=== PATIENT | female | born 1955 | race Caucasian/White ===

== ENCOUNTER 2023-08-31 08:03 | Emergency (ER) | payer MEDICARE, SELFPAY ==
--- NOTE | 2023-08-31 08:06 | ED.URI ---
HPI - URI/Sore Throat General Chief Complaint: Upper Respiratory Infection Stated Complaint: cough Time Seen by Provider: 08/31/23 08:21 Source: patient, RN notes reviewed and old records reviewed Mode of arrival: ambulatory Limitations: no limitations History of Present Illness HPI Narrative: 67-year-old female presents to the [facility] with complaints a cough for the last 3-4 days. Patient states that she has tried OTC medications and cough drops without relief. States that she has been running fevers of 100.5, has taken Tylenol with relief. Patient denies any other upper respiratory symptoms at this time Denies chest pain or shortness of breath Treatments prior to arrival: acetaminophen and other Related Data Home Medications Medication Instructions Recorded Confirmed bupropion HCl 150 mg 24 hr tablet, 150 mg PO DAILY 08/31/23 08/31/23 extended release hydrochlorothiazide 12.5 mg capsule 12.5 mg PO DAILY 08/31/23 08/31/23 latanoprost 0.005 % eye drops See Rx Instructions .Route .COMPLEX 08/31/23 08/31/23 levothyroxine 25 mcg tablet 25 mcg PO DAILY 08/31/23 08/31/23 rosuvastatin 40 mg tablet 40 mg PO DAILY 08/31/23 08/31/23 Allergies Allergy/AdvReac Type Severity Reaction Status Date / Time iodine Allergy THROAT Verified 08/31/23 08:21 SWELLING, RASH morphine Allergy LOCALIZED Verified 08/31/23 08:21 SKIN REACTION AT IV SITE Review of Systems Review of Systems: All systems reviewed & are unremarkable except as noted in HPI and below Constitutional: Constitutional: Reports no additional constitutional complaints Eyes: Eyes: Reports no additional eye complaints ENT: Reports as per HPI Cardiovascular: Cardiovascular: Reports no additional cardiovascular complaints, Denies chest pain and Denies dyspnea Respiratory: Respiratory: Reports as per HPI, Denies chest congestion, Reports cough and Denies dyspnea Gastrointestinal: Gastrointestinal: Reports no additional gastrointestinal complaints, Denies abdominal pain, Denies nausea and Denies vomiting Musculoskeletal: Musculoskeletal: Reports no additional musculoskeletal complaints Integumentary/Breasts: Skin/Breast: Reports system reviewed and no additional complaints, except as docu Neurologic: Reports system reviewed and no additional complaints, except as documented Psychiatric: Psychiatric: Reports no additional psychiatric complaints Allergic/Immunologic: Allergic/Immunologic: Reports no additional allergic/immunologic complaints [facility] Past Medical History Medical History (Updated 08/31/23 @ 08:33 by Elke Avelar APRN) Glaucoma Beata's disease High cholesterol Thyroid disease Surgical History Surgical History (Updated 08/31/23 @ 08:30 by Elke Avelar APRN) History of right hip replacement Social History Social History Smoking status: Current every day smoker Tobacco type: cigarettes Comments At the time of my signature, I reviewed and agree with the nursing past medical, surgical, social, and family history. There is no relevant family history pertinent to the patient complaint. Exam Const: General: cooperative, healthy appearing, comfortable, no acute distress, well developed, alert and well nourished Nutritional Appearance: well nourished Orientation/consciousness: patient oriented x3 Limitations: no limitations HENMT: Head: normal to inspection Ears: hearing grossly normal bilaterally, external ears normal, TM's normal bilaterally, EAC's normal, mastoids normal and no periauricular adenopathy Face/Nose/Sinus: Normal external nose present, Normal nares present, Normal nasal mucous membranes and turbinates present, No nasal discharge present, normal facial exam and face symmetric Face and sinus: normal facial exam, sinuses nontender and face symmetric Mouth: Yes Normal oral and palatal mucosa present, Yes lip normal and Yes moist mu
[2023-08-31 08:21] VITALS: BP 99/84; PULSE 84; RESP 16; TEMP 37.3; O2SAT 100
== END 2023-08-31 08:40 | disposition home or self-care (01) ==
PROVIDERS: Emergency Provider Nurse Practitioner; PCP Nurse Practitioner
DX: J40 Bronchitis, not specified as acute or chronic (principal); F17.210 Nicotine dependence, cigarettes, uncomplicated; E06.3 Autoimmune thyroiditis; H40.9 Unspecified glaucoma; E78.00 Pure hypercholesterolemia, unspecified; Z96.641 Presence of right artificial hip joint; E03.9 Hypothyroidism, unspecified
CPT/HCPCS: 99213; G0463

== ENCOUNTER 2025-01-30 08:05 | Emergency (ER) | payer MEDICARE, SELFPAY ==
--- NOTE | 2025-01-30 08:08 | ED.FEMALEGU ---
HPI - Female Genitourinary General Chief complaint: Urogenital-Female Stated complaint: urinary irritation Time Seen by Provider: 01/30/25 08:08 Source: patient Mode of arrival: ambulatory Limitations: no limitations History of Present Illness HPI Narrative: Juliane is a 69-year-old female patient presenting to the clinic today with complaints of possible UTI x3-4 days. Is having burning, frequency, bladder pressure, hematuria, and urgency. Also reporting some right-sided flank pain that comes and goes. Contacted her urologist and they recommend she go to the hospital to have a CT scan done to rule out kidney stones as she has a history of kidney stones. Has a CT scan scheduled for February 07, 2025. She thinks this is more of a urinary tract infection. Has taken azo this morning for the discomfort and that has helped her symptoms. No fevers, chills, nausea, vomiting, or abdominal pain. Related Data Home Medications ?Medication ?Instructions ?Recorded ?Confirmed ?Last Taken ?Type bupropion HCl 150 mg 24 hr tablet, 150 mg PO DAILY 08/31/23 08/31/23 Unknown History extended release hydrochlorothiazide 12.5 mg capsule 12.5 mg PO DAILY 08/31/23 08/31/23 Unknown History latanoprost 0.005 % eye drops See Rx Instructions .Route .COMPLEX 08/31/23 08/31/23 Unknown History levothyroxine 25 mcg tablet 25 mcg PO DAILY 08/31/23 08/31/23 Unknown History rosuvastatin 40 mg tablet 40 mg PO DAILY 08/31/23 08/31/23 Unknown History Allergies Allergy/AdvReac Type Severity Reaction Status Date / Time iodine Allergy THROAT Verified 08/31/23 08:21 SWELLING, RASH morphine Allergy LOCALIZED Verified 08/31/23 08:21 SKIN REACTION AT IV SITE Review of Systems Review of Systems: Pertinent positives per HPI. Patient denies any fever, chills, rash, headache, visual changes, dizziness, cough, runny nose, sore throat, shortness of breath, chest pain, palpitations, nausea, vomiting, diarrhea, constipation, abdominal pain PMFSH Past Medical History Medical History Glaucoma Beata's disease Thyroid disease High cholesterol Surgical History Surgical History History of right hip replacement Social History Social History Smoking status: Current every day smoker Tobacco type: cigarettes Comments At the time of my signature, I reviewed and agree with the nursing past medical, surgical, social, and family history. There is no relevant family history pertinent to the patient complaint. Exam Narrative: General: Well-developed, well nourished, in no apparent distress. Head: Normocephalic, atraumatic. Cardio: Regular rate and rhythm, s1 and s2 normal, no murmur appreciated. Resp: Clear to auscultation bilaterally, no rhonchi, rales, wheezing or rubs. Abdomen: Soft, pliable, bowel sounds present in all quadrants, suprapubic-tender to palpation, no organomegly, right CVAT tenderness. Course Course Emergency Course: Portions of this record may have been created with voice recognition software. Level of Care: Express Care Visit Vital Signs Vital signs: Vital signs reviewed MDM - Female Genitourinary MDM Narrative Medical decision making narrative: At the time of visit patient is resting comfortably on the exam table. Patient appears to be nontoxic. Labs: Urine culture was sent to the lab. Unable to do urinalysis dip due to patient taking azo Plan: I suspect patient has likely UTI but cannot rule out ureterolithiasis/pyelonephritis at this time. Will place patient on 7 day course of Bactrim and send urine for culture. If symptoms worsen she is to go the emergency room for further evaluation or contact her urologist. Supportive measures were discussed with the patient and they voiced understanding discharge instructions and agrees to treatment plan. Return precautions reviewed Differential Diagnosis Differential diagnosis: Likely urinary tract infection, cystitis and other (Pyelonephritis, ureterolithiasis, nephrolithiasis) Discharge Plan Discharge Clinical Impression: Urinary tract infection Qualifiers: Urinary tract infection type: acute cystitis Hematuria presence: with hematuria Qualified Code(s): N30.01 - Acute cystitis with hematuria Patient Disposition: Home Condition: Stable Instructions: Antibiotic Form, Urinary Tract Infection in Women (ED) Additional Instructions: Cannot rule out kidney stone in the ureter or a kidney infection at this time. Urinalysis sent to lab for culture Take Bactrim as prescribed Increase fluids and stay well hydrated Wipe front to back. May use wet wipes. Avoid tub baths If sexually active- pee before and after intercourse. Wear cotton panties Avoid tight clothing up against the genitals Follow up with your PCP in 1 week if symptoms persist. Follow-up with urologist as discussed Patient Language: Martiniquais Prescriptions: New sulfamethoxazole-trimethoprim [Bactrim DS] 800-160 mg tablet 1 tablet PO Q12H 7 Days Qty: 14 0RF No Action latanoprost 0.005 % drops See Rx Instructions .ROUTE .COMPLEX Rx Instructions: Rx levothyroxine 25 mcg tablet 25 mcg PO DAILY hydrochlorothiazide 12.5 mg capsule 12.5 mg PO DAILY rosuvastatin 40 mg tablet 40 mg PO DAILY bupropion HCl 150 mg tablet extended release 24 hr 150 mg PO DAILY (DME) Aerochamber MV Spacer See Rx Instructions .Route Qty: 1 0RF Rx Instructions: As directed albuterol sulfate 90 mcg/actuation HFA aerosol inhaler 2 puff inhalation QID PRN (Reason: shortness of breath or wheezing) Qty: 6.7 0RF prednisone 20 mg tablet 20 mg PO DAILY Qty: 5 0RF Follow-up/Referrals: Sierra,TIN Abdalla [Primary Care Provider] - Time of Disposition: 08:27 Quality NIHSS Nursing Documentation ED NIHSS nursing documentation: reviewed/agree
[2025-01-30 08:15] VITALS: BP 144/61; PULSE 56; RESP 16; TEMP 36.4; O2SAT 99
== END 2025-01-30 08:32 | disposition home or self-care (01) ==
PROVIDERS: Emergency Provider Nurse Practitioner Family; PCP Nurse Practitioner
DX: N30.01 Acute cystitis with hematuria (principal); F17.210 Nicotine dependence, cigarettes, uncomplicated; E06.3 Autoimmune thyroiditis; H40.9 Unspecified glaucoma; E78.00 Pure hypercholesterolemia, unspecified; Z96.641 Presence of right artificial hip joint
CPT/HCPCS: 87086; 87186; 99213; G0463